=== PATIENT | male | born 1940 ===

== ENCOUNTER 2017-10-03 08:15 | Inpatient (IN) | payer OTHER ==
[~2017-10-03] VITALS: Ht 165.1 cm; Wt 68.0 kg
== END 2017-10-07 11:40 | disposition home or self-care (01) | DRG 460 ==
LOC: O/R 10-06 05:17 → PED 10-06 05:17 → SURG 10-06 07:00 → PED 10-06 15:30
PROVIDERS: Orthopaedic Surgery
PROC: 00NY0ZZ Release Lumbar Spinal Cord, Open Approach (ICD-10-PCS; 2017-10-06)
PROC: 0ST40ZZ Resection of Lumbosacral Disc, Open Approach (ICD-10-PCS; 2017-10-06)
PROC: 0SG30AJ Fusion of Lumbosacral Joint with Interbody Fusion Device, Posterior Approach, Anterior Column, Open Approach (ICD-10-PCS; principal; 2017-10-06 07:00)
DX: M48.07 Spinal stenosis, lumbosacral region (principal); M51.17 Intervertebral disc disorders with radiculopathy, lumbosacral region; M47.27 Other spondylosis with radiculopathy, lumbosacral region; I11.9 Hypertensive heart disease without heart failure; E78.2 Mixed hyperlipidemia